=== PATIENT | female | born 1995 | race Caucasian/White ===

== ENCOUNTER 2018-10-04 00:25 | Emergency (ER) | payer SELFPAY ==
[~2018-10-04] VITALS: Ht 167.6 cm; Wt 68.6 kg
[2018-10-04 00:38] VITALS: BP 103/60
[2018-10-04] MEDS ORDERED: PEN G PROCAINE/PEN G BENZ CR 1,200,000 UNITS/2 ML SYG IM ONE (00:45)
== END 2018-10-04 01:02 | disposition home or self-care (01) ==
LOC: EMS 00:26
DX: J02.9 Acute pharyngitis, unspecified (principal); F17.210 Nicotine dependence, cigarettes, uncomplicated
CPT/HCPCS: 96372; 99283; J0558